=== PATIENT | female | born 1995 | race Caucasian/White ===

== ENCOUNTER 2022-01-04 22:00 | Inpatient (IN) ==
[2022-01-05] MEDS ORDERED: Famotidine 20 MG/2 ML VIAL IVP PRN (10:37)
[2022-01-05] MEDS ORDERED: Ondansetron 4 MG/2 ML VIAL IVP PRN (10:37)
[2022-01-05] MEDS ORDERED: Metoclopramide 10 MG/2 ML VIAL IVP PRN (10:37)
[2022-01-05] MEDS ORDERED: Naloxone 0.4 MG/ML INJ IVP PRN (10:37)
[2022-01-05] MEDS ORDERED: *HR* Nalbuphine 10 MG/ML AMPUL IV PRN (10:37)
[2022-01-05] MEDS ORDERED: Ringers Solution, Lactated 1,000 ML IVC SCH (10:45)
[2022-01-05] MEDS ORDERED: EPHEDrine 50 MG/ML VIAL IVP PRN (11:19)
[2022-01-05 11:29] LABS: Basophils % 0.4 %; Eosinophils # 0.1 K/mcL (0.0-0.6); Eosinophils % 0.6 %; Hematocrit 37.1 % (35.3-44.9); Hemoglobin 12.4 g/dL (11.5-15.4); Immature Granulocytes % 0.7 % (0-4); Lymphocytes # 1.5 K/mcL (0.6-4.6); Lymphocytes % 15.5 %; Mean Corpuscular HGB Conc 33.4 g/dL (31.6-35.5); Mean Corpuscular Volume 95.6 fL (83.0-100.0); Monocytes # 0.6 K/mcL (0.0-1.3); Monocytes % 6.3 %; Neutrophils # 7.5 K/mcL (1.6-8.9); Platelet Count 166 K/mcL (140-400); Red Blood Count 3.88 M/mcL (3.82-4.97); Red Cell Distribution Width 13.9 % (11.5-14.5); Segmented Neutrophils % 76.5 %; White Blood Count 9.9 K/mcL (4.3-11.1)
[2022-01-05] MEDS ORDERED: Epidural Premix (fent/bupiv) 110 ML EP SCH (11:30)
[2022-01-05 11:36] LABS: Amphetamine Screen,Urine Negative ng/mL (Cutoff=1000); Barbiturate Screen,Urine Negative ng/mL (Cutoff=200); Benzodiazepines Screen,Urine Negative ng/mL (Cutoff=200); Cannabinoid Screen,Urine Negative ng/mL (Cutoff = 50); Cocaine Screen,Urine Negative ng/mL (Cutoff= 300); Opiate Screen,Urine Negative ng/mL (Cutoff=300); Phencyclidine Screen,Urine Negative ng/mL (Cutoff=25)
[2022-01-05] MEDS ORDERED: Oxytocin 30 UNIT/503 ML BAG IVC SCH (11:45)
[2022-01-05] MEDS ORDERED: Penicillin G Potassium 5,000,000 UNIT in 0.9 % Sodium Chloride Mini Bag 100 ML IVPB ONE (12:16)
[2022-01-05] MEDS: Penicillin G Potassium 2,500,000 UNIT/105 ML MLS IVPB SCH ×2 (16:45→20:40)
[2022-01-06] MEDS ORDERED: Measles/Mumps/Rubella Vacc 0.5 ML VIAL SQ PRN (00:02)
[2022-01-06] MEDS ORDERED: Benzocaine/Menthol 56 GM AEROSOL SPRAY TP PRN (00:02)
[2022-01-06] MEDS ORDERED: Rho Immune Globulin 1,500 UNIT SYRINGE IM PRN (00:02)
[2022-01-06] MEDS ORDERED: Lanolin 7 G OINT...G. TP PRN (00:02)
[2022-01-06] MEDS ORDERED: Ondansetron ODT 4 MG TAB.RAPDIS SL PRN (00:02)
[2022-01-06] MEDS ORDERED: OXYTOCIN/RINGERS LACTATE 10 UNIT/166.6 ML BAG IVC ONE (00:02)
[2022-01-06] MEDS: Acetaminophen 325 MG TABLET PO SCH ×5 (01:31→23:06)
[2022-01-06] MEDS: Ibuprofen 600 MG TABLET PO SCH ×5 (01:32→23:06)
[2022-01-06 06:11] LABS: Basophils % 0.2 %; Eosinophils % 0.2 %; Hematocrit 33.9 % (35.3-44.9); Hemoglobin 11.3 g/dL (11.5-15.4); Immature Granulocytes % 0.3 % (0-4); Lymphocytes # 1.3 K/mcL (0.6-4.6); Lymphocytes % 8.5 %; Mean Corpuscular HGB Conc 33.3 g/dL (31.6-35.5); Mean Corpuscular Hemoglobin 31.4 pg (28.0-33.3); Mean Corpuscular Volume 94.2 fL (83.0-100.0); Mean Platelet Volume 12.9 fL (9.4-12.4); Monocytes # 0.8 K/mcL (0.0-1.3); Monocytes % 5.5 %; Neutrophils # 13.1 K/mcL (1.6-8.9); Platelet Count 149 K/mcL (140-400); Red Cell Distribution Width 13.5 % (11.5-14.5); Segmented Neutrophils % 85.3 %; White Blood Count 15.3 K/mcL (4.3-11.1)
[2022-01-06 08:04] VITALS: O2SAT 98
[2022-01-06] MEDS ORDERED: Prenatal Vit/FA 1 EACH TABLET PO SCH ×2 (09:00)
[2022-01-06 17:06] VITALS: TEMP 98
[2022-01-06 20:25] VITALS: BP 107/62; PULSE 80
== END 2022-01-06 23:35 | disposition home or self-care (01) | DRG 806 ==
LOC: 1NENULAB 01-05 10:17 → 1NENUOBS 01-06
PROVIDERS: ADMIT Student in an Organized Health Care Education/Training Program; ATTEND Student in an Organized Health Care Education/Training Program